=== PATIENT | female | born 1965 | race Caucasian/White ===

== ENCOUNTER 2023-09-16 18:59 | Inpatient (IN) | payer MEDICAID, OTHER ==
[~2023-09-16] VITALS: Ht 170.2 cm; Wt 83.2 kg
[2023-09-16 19:27] LABS: HEMATOCRIT 43.5 % (36.0-47.0); HEMOGLOBIN 14.9 g/dl (12.0-15.5); MEAN CORPUSCULAR HEMOGLOBIN 30.8 pg (27.0-33.0); MEAN CORPUSCULAR HGB CONC 34.3 g/dl (32.0-36.5); MEAN CORPUSCULAR VOLUME 89.9 fl (80.0-96.0); PLATELET COUNT, AUTOMATED 149 10^3/uL (150-450); RED BLOOD COUNT 4.84 10^6/uL (4.00-5.40); WHITE BLOOD COUNT 4.7 10^3/uL (4.0-10.0)
[2023-09-16] MEDS: NS 1,000 ML IV ONE (19:35)
[2023-09-16] MEDS: MIDAZOLAM 100MG/100ML-0.9%NACL 100 MG in IV 1 EA IV SCH (19:35)
[2023-09-16] MEDS: ROCURONIUM BROMIDE 50MG/5ML VIAL IV ONE (19:36)
[2023-09-16] MEDS: ETOMIDATE INJ 20MG/10ML VIAL IV ONE (19:36)
[2023-09-16 19:47] LABS: VENOUS BASE EXCESS -7.7 (-2.0-2.0); VENOUS HCO3 19.3 MMOL/L (23.0-27.0); VENOUS O2 SATURATION 77.1 % (60.0-80.0); VENOUS PARTIAL PRESSURE CO2 44.6 mmHg (38.0-50.0); VENOUS PH 7.254 UNITS (7.330-7.430); VENOUS STANDARD HCO3 17.9 MMOL/L; VENOUS TOTAL CO2 20.7 MMOL/L (24.0-28.0)
[2023-09-16 19:47] LABS: ABG BASE EXCESS -8.1 (-2.0-2.0); ABG HCO3 16.8 MMOL/L (22.0-26.0); ABG O2 SATURATION 99.1 % (95.0-99.0); ABG PARTIAL PRESSURE CO2 33.1 mmHg (35.0-45.0); ABG PARTIAL PRESSURE O2 183.9 mmHg (75.0-100.0); ABG STANDARD HCO3 18.1 MMOL/L. (22.0-26.0); ABG TOTAL CO2 17.8 MMOL/L (22.0-29.0); ABG pH (ARTERIAL) 7.324 UNITS (7.350-7.450)
[2023-09-16] MEDS: PIPERACILLIN/TAZOBACTAM SOD 4.5 GM in D5W MINI-BAG PLUS 50 ML IV ONE (19:50)
[2023-09-16 19:55] LABS: ALBUMIN 2.8 G/DL (3.2-5.2); ALKALINE PHOSPHATASE 49 U/L (46-116); ALT/SGPT 16 U/L (7.0-40); AST/SGOT 20 U/L (<34); BILIRUBIN,DIRECT 0.5 MG/DL (<0.4); CK-MB VALUE MASS < 1.0 NG/ML (<3.6); TOTAL PROTEIN 5.2 G/DL (5.7-8.2)
[2023-09-16 19:58] LABS: THYROID STIMULATING HORMONE 0.551 uIU/ML (0.55-4.78)
[2023-09-16] MEDS ORDERED: ISOVUE-370 76% 100ML VIAL As Ordered ONE (20:03)
[2023-09-16] MEDS: IPRATROPIUM 0.5MG/ALBUTEROL 2.5MG INH SOL UD 3ML (DUONEB) NEB SCH (20:05)
[2023-09-16 20:07] LABS: CPK CREATINE PHOSPHOKINASE 142 U/L (34-145); PROCALCITONIN >50.00 ng/ml
[2023-09-16 20:11] LABS: ATYPICAL LYMPH 4 % (0-5); LYMPHOCYTES 14 % (16-44); METAMYELOCYTES 2 % (0-0); MONOCYTES 7 % (0-5); MYELOCYTES 2 % (0-0); NEUTROPHILS 61 % (28-66)
[2023-09-16 20:12] LABS: PLATELET ESTIMATE NORMAL (NORMAL)
[2023-09-16 20:13] LABS: TOXIC VACUOLATION 1+
[2023-09-16] MEDS: NS 1,590 ML in IV 1 EA IV ONE (20:52)
[2023-09-16] MEDS: MIDAZOLAM INJ 2MG/2ML VIAL IV PRN (22:06)
[2023-09-16] MEDS ORDERED: propofoL 1,000 MG in IV 1 EA IV SCH (22:10)
[2023-09-16] MEDS: ROCURONIUM BROMIDE 50MG/5ML VIAL IV PRN (22:15)
[2023-09-16] MEDS ORDERED: HOME MED LIST COMPLETE! XX SCH (22:50)
[2023-09-17] VITALS (135 sets, daily range): BP systolic 58–179; BP diastolic 24–92; TEMP 92.1–105.6; O2SAT 48–100
[2023-09-17] MEDS: MIDAZOLAM 100MG/100ML-0.9%NACL 100 MG in IV 1 EA IV SCH (00:25)
[2023-09-17] MEDS: propofoL 1,000 MG in IV 1 EA IV SCH (00:25)
[2023-09-17] MEDS ORDERED: IPRATROPIUM 0.5MG/ALBUTEROL 2.5MG INH SOL UD 3ML (DUONEB) NEB PRN (00:25)
[2023-09-17 01:12] LABS: INR 1.69; PROTHROMBIN TIME 19.3 SECONDS (12.5-14.5)
[2023-09-17] MEDS: ACETAMINOPHEN *IV* 1,000 MG in IV 1 EA IV ONE (01:58)
[2023-09-17] MEDS: MIDAZOLAM INJ 2MG/2ML VIAL IV PRN (01:58)
[2023-09-17] MEDS ORDERED: FENTANYL DRIP LOCK BOX KEY 1 EACH XX PRN (03:10)
[2023-09-17 03:13] LABS: ABG HCO3 16.2 MMOL/L (22.0-26.0); ABG O2 SATURATION 89.7 % (95.0-99.0); ABG STANDARD HCO3 15.5 MMOL/L. (22.0-26.0)
[2023-09-17 03:16] LABS: ABG BASE EXCESS -11.4 (-2.0-2.0); ABG PARTIAL PRESSURE CO2 42.7 mmHg (35.0-45.0); ABG PARTIAL PRESSURE O2 59.5 mmHg (75.0-100.0); ABG TOTAL CO2 17.6 MMOL/L (22.0-29.0); ABG pH (ARTERIAL) 7.198 UNITS (7.350-7.450)
[2023-09-17] MEDS: LR 1,000 ML IV SCH (03:23)
[2023-09-17] MEDS: PIPERACILLIN/TAZOBACTAM SOD 4.5 GM in D5W MINI-BAG PLUS 50 ML IV SCH (03:38)
[2023-09-17] MEDS: fentaNYL CITRATE/NaCl 1,000 MCG in IV 1 EA IV SCH (03:46)
[2023-09-17] MEDS: SODIUM BICARBONATE 150 MEQ in D5W 1,000 ML IV SCH ×2 (03:50→21:20)
[2023-09-17] MEDS ORDERED: ACETAMINOPHEN *IV* 1,000 MG in IV 1 EA IV ONE (04:00)
[2023-09-17] MEDS ORDERED: SODIUM BICARBONATE 8.4% INJ 50ML SYRINGE ONE (04:22)
[2023-09-17] MEDS ORDERED: MAGNESIUM SULFATE 1GM/2ML (8MEQ/2ML) VIAL ONE (04:22)
[2023-09-17] MEDS ORDERED: CALCIUM CHLORIDE 10% 1 GM/10 ML SYR ONE (04:22)
[2023-09-17] MEDS ORDERED: EPINEPHrine 1MG/10ML SYRINGE 1.5IN ONE (04:22)
[2023-09-17 05:15] LABS: HEMATOCRIT 37.8 % (36.0-47.0); MEAN CORPUSCULAR HEMOGLOBIN 31.2 pg (27.0-33.0); MEAN CORPUSCULAR HGB CONC 33.6 g/dl (32.0-36.5); MEAN CORPUSCULAR VOLUME 92.9 fl (80.0-96.0); RED BLOOD COUNT 4.07 10^6/uL (4.00-5.40); WHITE BLOOD COUNT 1.3 10^3/uL (4.0-10.0)
[2023-09-17] MEDS ORDERED: VASOPRESSIN INJ 20UNITS/ML 1ML VIAL As Ordered ONE (05:15)
[2023-09-17 05:16] LABS: ABG BASE EXCESS -10.2 (-2.0-2.0); ABG HCO3 19.8 MMOL/L (22.0-26.0); ABG O2 SATURATION 89.1 % (95.0-99.0); ABG PARTIAL PRESSURE O2 64.4 mmHg (75.0-100.0); ABG STANDARD HCO3 16.3 MMOL/L. (22.0-26.0); ABG TOTAL CO2 21.7 MMOL/L (22.0-29.0)
[2023-09-17 05:19] LABS: ABG PARTIAL PRESSURE CO2 62.2 mmHg (35.0-45.0)
[2023-09-17] MEDS: VASOPRESSIN INJ 20 UNITS in NS 499 ML IV SCH (05:20)
[2023-09-17] MEDS ORDERED: SODIUM BICARBONATE 8.4% INJ 50ML SYRINGE As Ordered ONE (05:31)
[2023-09-17] MEDS ORDERED: PHENYLEPHRINE 10MG/ML 1ML VIAL As Ordered ONE (05:31)
[2023-09-17] MEDS: SODIUM BICARBONATE 8.4% INJ 50ML SYRINGE IV STA ×4 (05:31→21:20)
[2023-09-17] MEDS: PHENYLEPHRINE HCL INJ 50 MG in D5W 495 ML IV SCH (05:37)
[2023-09-17] MEDS ORDERED: HYDROCORTISONE 100MG/2ML VIAL As Ordered ONE (05:40)
[2023-09-17] MEDS: HYDROCORTISONE 100MG/2ML VIAL IV SCH (05:42)
[2023-09-17 05:43] LABS: HEMOGLOBIN 12.7 g/dl (12.0-15.5); PLATELET COUNT, AUTOMATED 85 10^3/uL (150-450)
[2023-09-17] MEDS: NOREPINEPHRINE 4MG IN D5 250ML 4 MG in IV 1 EA IV SCH (05:44)
[2023-09-17] MEDS: LR 1,000 ML IV ONE (05:44)
[2023-09-17 05:46] LABS: INR 2.33; PARTIAL THROMBOPLASTIN TIME 69.3 SECONDS (24.8-34.2); PROTHROMBIN TIME 24.7 SECONDS (12.5-14.5)
[2023-09-17] MEDS ORDERED: EPINEPHrine INJ 1 MG/ML 1ML AMP As Ordered ONE (05:49)
[2023-09-17] MEDS: EPINEPHrine HCL INJ 4 MG in D5W 996 ML IV SCH (06:03)
[2023-09-17 06:07] LABS: ALBUMIN 1.4 G/DL (3.2-5.2); BILIRUBIN,TOTAL 0.5 MG/DL (0.3-1.2); CALCIUM LEVEL 7.3 MG/DL (8.5-10.1); CREATININE FOR GFR 1.66 MG/DL (0.55-1.30); FREE THYROXINE INDEX 3.1 % (1.3-4.8); MAGNESIUM LEVEL 2.9 MG/DL (1.8-2.4); POTASSIUM SERUM 3.4 MMOL/L (3.5-5.1); THYROID STIMULATING HORMONE 1.806 uIU/ML (0.55-4.78); THYROXINE (T4) 4.7 UG/DL (4.5-10.9); TOTAL PROTEIN 3.1 G/DL (5.7-8.2)
[2023-09-17 06:56] LABS: ABG BASE EXCESS -4.1 (-2.0-2.0); ABG HCO3 22.5 MMOL/L (22.0-26.0); ABG O2 SATURATION 86.1 % (95.0-99.0); ABG PARTIAL PRESSURE CO2 46.8 mmHg (35.0-45.0); ABG STANDARD HCO3 20.8 MMOL/L. (22.0-26.0); ABG TOTAL CO2 23.9 MMOL/L (22.0-29.0); ABG pH (ARTERIAL) 7.299 UNITS (7.350-7.450)
[2023-09-17 06:58] LABS: ABG PARTIAL PRESSURE O2 49.3 mmHg (75.0-100.0)
[2023-09-17] MEDS: VANCOMYCIN HCL 750 MG, VIAL MATE ADAPTER 1 EACH in D5W 250 ML IV ONE ×2 (07:15→08:25)
[2023-09-17] MEDS: CISATRACURIUM 10MG/ML 20 ML VIAL IV ONE (07:23)
[2023-09-17] MEDS: AZITHROMYCIN INJ 500 MG, VIAL MATE ADAPTER 1 EACH in NS 250 ML IV SCH (08:00)
[2023-09-17 08:02] LABS: ABG PARTIAL PRESSURE CO2 51.9 mmHg (35.0-45.0)
[2023-09-17 08:05] LABS: ABG BASE EXCESS -7.1 (-2.0-2.0); ABG HCO3 20.9 MMOL/L (22.0-26.0); ABG O2 SATURATION 99.3 % (95.0-99.0); ABG STANDARD HCO3 18.8 MMOL/L. (22.0-26.0); ABG TOTAL CO2 22.5 MMOL/L (22.0-29.0)
[2023-09-17 08:06] LABS: ABG pH (ARTERIAL) 7.222 UNITS (7.350-7.450)
[2023-09-17 08:40] LABS: ABG BASE EXCESS -9.9 (-2.0-2.0); ABG HCO3 19.7 MMOL/L (22.0-26.0); ABG O2 SATURATION 92.5 % (95.0-99.0); ABG PARTIAL PRESSURE CO2 58.8 mmHg (35.0-45.0); ABG PARTIAL PRESSURE O2 73.4 mmHg (75.0-100.0); ABG STANDARD HCO3 16.6 MMOL/L. (22.0-26.0); ABG TOTAL CO2 21.5 MMOL/L (22.0-29.0)
[2023-09-17 08:42] LABS: ABG pH (ARTERIAL) 7.143 UNITS (7.350-7.450)
[2023-09-17] MEDS ORDERED: ENOXAPARIN 40MG/0.4ML SYRINGE (J1650 PER 10MG) SC SCH (09:00)
[2023-09-17] MEDS: KCL 10MEQ/100ML SWI (KRUN) 10 MEQ in IV 1 EA IV ONE (09:01)
[2023-09-17] MEDS: CISATRACURIUM 200 MG in NS 480 ML IV SCH (09:08)
[2023-09-17 09:26] LABS: HEMATOCRIT 40.7 % (36.0-47.0); HEMOGLOBIN 13.4 g/dl (12.0-15.5); MEAN CORPUSCULAR HEMOGLOBIN 29.8 pg (27.0-33.0); MEAN CORPUSCULAR HGB CONC 32.9 g/dl (32.0-36.5); MEAN CORPUSCULAR VOLUME 90.6 fl (80.0-96.0); RED BLOOD COUNT 4.49 10^6/uL (4.00-5.40); WHITE BLOOD COUNT 1.6 10^3/uL (4.0-10.0)
[2023-09-17 09:27] LABS: PLATELET COUNT, AUTOMATED 89 10^3/uL (150-450)
[2023-09-17 09:27] LABS: INR 2.41; PARTIAL THROMBOPLASTIN TIME 48.9 SECONDS (24.8-34.2); PROTHROMBIN TIME 25.4 SECONDS (12.5-14.5)
[2023-09-17] MEDS: HEPARIN 1,000UNITS/ML 10ML VIAL (FOR RADIOLOGY & DIALYSIS ONLY) IV STA (09:37)
[2023-09-17] MEDS: PANTOPRAZOLE 40MG VIAL IV SCH (09:37)
[2023-09-17 09:39] LABS: ABG BASE EXCESS -9.6 (-2.0-2.0); ABG HCO3 19.3 MMOL/L (22.0-26.0); ABG O2 SATURATION 91.7 % (95.0-99.0); ABG STANDARD HCO3 16.8 MMOL/L. (22.0-26.0)
[2023-09-17 09:41] LABS: URIC ACID 5.7 MG/DL (3.1-7.8)
[2023-09-17 09:42] LABS: ABG pH (ARTERIAL) 7.164 UNITS (7.350-7.450)
[2023-09-17 09:51] LABS: ALBUMIN 1.5 G/DL (3.2-5.2); BILIRUBIN,TOTAL 0.9 MG/DL (0.3-1.2); CALCIUM LEVEL 6.5 MG/DL (8.5-10.1); CREATININE FOR GFR 1.46 MG/DL (0.55-1.30); GLOMERULAR FILTRATION RATE 39.5 (>51); PHOSPHORUS LEVEL 4.6 MG/DL (2.5-4.9); POTASSIUM SERUM 2.8 MMOL/L (3.5-5.1); TOTAL PROTEIN 3.2 G/DL (5.7-8.2)
[2023-09-17 09:52] LABS: ATYPICAL LYMPH 5 % (0-5); EOSINOPHILS 1 % (0-3); LYMPHOCYTES 51 % (16-44); METAMYELOCYTES 11 % (0-0); MONOCYTES 4 % (0-5); MYELOCYTES 9 % (0-0); NEUTROPHILS 11 % (28-66)
[2023-09-17 09:54] LABS: PLATELET CLUMPS SMALL AMT; PLATELET ESTIMATE DECREASED (NORMAL); SMUDGE CELLS 1+
[2023-09-17 09:55] LABS: CRENATED RBC 1+; POLYCHROMASIA 1+
[2023-09-17] MEDS ORDERED: GLUCAGON INJ 1MG VIAL SC PRN (09:55)
[2023-09-17] MEDS ORDERED: GLUCOSE 4GM CHEW TABLET PO PRN (09:55)
[2023-09-17 09:56] LABS: POIKILOCYTOSIS 1+
[2023-09-17 09:57] LABS: TOXIC VACUOLATION 1+
[2023-09-17 10:00] LABS: ALBUMIN 1.5 G/DL (3.2-5.2); BILIRUBIN,TOTAL 0.9 MG/DL (0.3-1.2); CALCIUM LEVEL 6.6 MG/DL (8.5-10.1); CK-MB VALUE MASS 6.5 NG/ML (<3.6); CREATININE FOR GFR 1.45 MG/DL (0.55-1.30); GLOMERULAR FILTRATION RATE 39.8 (>51); MB/CK RELATIVE INDEX 1.71 (< OR =4); PHOSPHORUS LEVEL 4.7 MG/DL (2.5-4.9); POTASSIUM SERUM 2.8 MMOL/L (3.5-5.1); TOTAL PROTEIN 3.2 G/DL (5.7-8.2)
[2023-09-17 10:21] LABS: URINE PREG TEST NEGATIVE (NEGATIVE)
[2023-09-17 10:35] LABS: ABG BASE EXCESS -9.5 (-2.0-2.0); ABG HCO3 19.9 MMOL/L (22.0-26.0); ABG PARTIAL PRESSURE CO2 58.6 mmHg (35.0-45.0); ABG PARTIAL PRESSURE O2 64.7 mmHg (75.0-100.0); ABG STANDARD HCO3 16.8 MMOL/L. (22.0-26.0); ABG TOTAL CO2 21.6 MMOL/L (22.0-29.0)
[2023-09-17 10:37] LABS: ABG pH (ARTERIAL) 7.149 UNITS (7.350-7.450)
[2023-09-17] MEDS: KCL 20MEQ IN 100ML SWI (KRUN) 20 MEQ in IV 1 EA IV SCH ×2 (10:49→18:39)
[2023-09-17] MEDS: MEROPENEM INJ 2 GM in NS 100 ML IV SCH (11:09)
[2023-09-17] MEDS ORDERED: HEPARIN 1,000UNITS/ML 10ML VIAL (FOR RADIOLOGY & DIALYSIS ONLY) IV PRN (11:20)
[2023-09-17] MEDS ORDERED: SODIUM CHLORIDE 0.9% INJ 10 ML SYR IV PRN (11:20)
[2023-09-17 11:43] LABS: ABG O2 SATURATION 91.9 % (95.0-99.0); ABG PARTIAL PRESSURE O2 69.9 mmHg (75.0-100.0); ABG STANDARD HCO3 15.8 MMOL/L. (22.0-26.0); ABG TOTAL CO2 20.8 MMOL/L (22.0-29.0)
[2023-09-17 11:49] LABS: ABG PARTIAL PRESSURE CO2 60.4 mmHg (35.0-45.0); ABG pH (ARTERIAL) 7.115 UNITS (7.350-7.450)
[2023-09-17 12:05] LABS: HEMATOCRIT 38.3 % (36.0-47.0); HEMOGLOBIN 12.6 g/dl (12.0-15.5); MEAN CORPUSCULAR HEMOGLOBIN 30.1 pg (27.0-33.0); MEAN CORPUSCULAR HGB CONC 32.9 g/dl (32.0-36.5); MEAN CORPUSCULAR VOLUME 91.4 fl (80.0-96.0); RED BLOOD COUNT 4.19 10^6/uL (4.00-5.40); WHITE BLOOD COUNT 1.9 10^3/uL (4.0-10.0)
[2023-09-17 12:06] LABS: PLATELET COUNT, AUTOMATED 65 10^3/uL (150-450)
[2023-09-17 12:17] LABS: INR 2.81; PARTIAL THROMBOPLASTIN TIME 53.5 SECONDS (24.8-34.2); PROTHROMBIN TIME 28.5 SECONDS (12.5-14.5)
[2023-09-17] MEDS: INSULIN LISPRO (NovoLOG) PER UNIT SC SCH (12:27)
[2023-09-17 12:30] LABS: ALBUMIN 1.3 G/DL (3.2-5.2); BILIRUBIN,TOTAL 0.7 MG/DL (0.3-1.2); CREATININE FOR GFR 1.44 MG/DL (0.55-1.30); GLOMERULAR FILTRATION RATE 40.1 (>51); MAGNESIUM LEVEL 1.9 MG/DL (1.8-2.4); PHOSPHORUS LEVEL 5.4 MG/DL (2.5-4.9); POTASSIUM SERUM 4.1 MMOL/L (3.5-5.1); TOTAL PROTEIN 2.9 G/DL (5.7-8.2)
[2023-09-17 12:43] LABS: ABG HCO3 18.9 MMOL/L (22.0-26.0); ABG O2 SATURATION 93.9 % (95.0-99.0); ABG PARTIAL PRESSURE CO2 56.4 mmHg (35.0-45.0); ABG PARTIAL PRESSURE O2 71.7 mmHg (75.0-100.0); ABG STANDARD HCO3 15.8 MMOL/L. (22.0-26.0); ABG TOTAL CO2 20.7 MMOL/L (22.0-29.0)
[2023-09-17 12:45] LABS: ABG pH (ARTERIAL) 7.133 UNITS (7.350-7.450)
[2023-09-17] MEDS ORDERED: ACETAMINOPHEN *IV* 1,000 MG in IV 1 EA IV PRN (13:30)
[2023-09-17] MEDS: MAG SULF 1GM/100ML (MAG RUN) 1 GM in IV 1 EA IV ONE (13:58)
[2023-09-17] MEDS: CALCIUM GLUCONATE 1,000 MG, VIAL MATE ADAPTER 1 EACH in NS 100 ML IV SCH (14:02)
[2023-09-17 14:38] LABS: ABG BASE EXCESS -9.8 (-2.0-2.0); ABG HCO3 19.5 MMOL/L (22.0-26.0); ABG O2 SATURATION 93.8 % (95.0-99.0); ABG PARTIAL PRESSURE CO2 50.4 mmHg (35.0-45.0); ABG STANDARD HCO3 16.6 MMOL/L. (22.0-26.0); ABG TOTAL CO2 21.3 MMOL/L (22.0-29.0)
[2023-09-17 14:40] LABS: ABG pH (ARTERIAL) 7.186 UNITS (7.350-7.450)
[2023-09-17 16:13] LABS: ABG BASE EXCESS -12.4 (-2.0-2.0); ABG HCO3 17.2 MMOL/L (22.0-26.0); ABG O2 SATURATION 92.7 % (95.0-99.0); ABG PARTIAL PRESSURE CO2 46.2 mmHg (35.0-45.0); ABG PARTIAL PRESSURE O2 55.2 mmHg (75.0-100.0); ABG STANDARD HCO3 14.8 MMOL/L. (22.0-26.0); ABG TOTAL CO2 18.9 MMOL/L (22.0-29.0)
[2023-09-17 16:20] LABS: ABG pH (ARTERIAL) 7.165 UNITS (7.350-7.450)
[2023-09-17 16:32] LABS: INR 3.04; PARTIAL THROMBOPLASTIN TIME 57.3 SECONDS (24.8-34.2); PROTHROMBIN TIME 30.3 SECONDS (12.5-14.5)
[2023-09-17 16:42] LABS: HEMATOCRIT 37.4 % (36.0-47.0); HEMOGLOBIN 12.6 g/dl (12.0-15.5); MEAN CORPUSCULAR HEMOGLOBIN 30.6 pg (27.0-33.0); MEAN CORPUSCULAR HGB CONC 33.7 g/dl (32.0-36.5); MEAN CORPUSCULAR VOLUME 90.8 fl (80.0-96.0); RED BLOOD COUNT 4.12 10^6/uL (4.00-5.40); WHITE BLOOD COUNT 1.9 10^3/uL (4.0-10.0)
[2023-09-17 16:45] LABS: ALBUMIN 1.2 G/DL (3.2-5.2); ALKALINE PHOSPHATASE 33 U/L (46-116); ALT/SGPT 22 U/L (7.0-40); AST/SGOT 52 U/L (<34); BILIRUBIN,TOTAL 0.8 MG/DL (0.3-1.2); BLOOD UREA NITROGEN 25 MG/DL (9-23); CALCIUM LEVEL 6.4 MG/DL (8.5-10.1); CARBON DIOXIDE LEVEL 20 MMOL/L (20-31); CHLORIDE LEVEL 103 MMOL/L (98-107); GLOMERULAR FILTRATION RATE > 60.0 (>51); GLUCOSE, FASTING 240 MG/DL (60-100); MAGNESIUM LEVEL 2.1 MG/DL (1.8-2.4); PHOSPHORUS LEVEL 4.5 MG/DL (2.5-4.9); POTASSIUM SERUM 3.2 MMOL/L (3.5-5.1); SODIUM LEVEL 132 MMOL/L (136-145); TOTAL PROTEIN 2.8 G/DL (5.7-8.2)
[2023-09-17 16:47] LABS: PLATELET COUNT, AUTOMATED 41 10^3/uL (150-450)
[2023-09-17 17:25] LABS: ABG HCO3 17.1 MMOL/L (22.0-26.0); ABG O2 SATURATION 88.8 % (95.0-99.0); ABG PARTIAL PRESSURE CO2 59.1 mmHg (35.0-45.0); ABG TOTAL CO2 19.2 MMOL/L (22.0-29.0)
[2023-09-17 17:26] LABS: ABG pH (ARTERIAL) 7.052 UNITS (7.350-7.450)
[2023-09-17] MEDS: KCL 20MEQ IN 100ML SWI (KRUN) 20 MEQ in IV 1 EA IV ONE (17:31)
[2023-09-17] MEDS: VANCOMYCIN HCL 750 MG, VIAL MATE ADAPTER 1 EACH in D5W 250 ML IV SCH (17:31)
[2023-09-17] MEDS ORDERED: VANCOMYCIN HCL 1,000 MG, VIAL MATE ADAPTER 1 EACH in D5W 250 ML IV SCH (18:00)
[2023-09-17] MEDS: CALCIUM GLUCONATE 1,000 MG in NS 100 ML IV SCH (18:39)
[2023-09-17] MEDS: MEROPENEM INJ 1 GM in IV 1 EA IV SCH (18:47)
[2023-09-17 19:25] LABS: ABG BASE EXCESS -15.5 (-2.0-2.0); ABG HCO3 15.4 MMOL/L (22.0-26.0); ABG O2 SATURATION 96.6 % (95.0-99.0); ABG PARTIAL PRESSURE CO2 57.5 mmHg (35.0-45.0); ABG PARTIAL PRESSURE O2 98.5 mmHg (75.0-100.0); ABG STANDARD HCO3 12.9 MMOL/L. (22.0-26.0); ABG TOTAL CO2 17.1 MMOL/L (22.0-29.0)
[2023-09-17 19:26] LABS: ABG pH (ARTERIAL) 7.045 UNITS (7.350-7.450)
[2023-09-17 21:08] LABS: ABG O2 SATURATION 93.6 % (95.0-99.0); ABG PARTIAL PRESSURE CO2 56.1 mmHg (35.0-45.0)
[2023-09-17 21:09] LABS: ABG BASE EXCESS -18.6 (-2.0-2.0); ABG HCO3 13.2 MMOL/L (22.0-26.0); ABG PARTIAL PRESSURE O2 76.8 mmHg (75.0-100.0); ABG STANDARD HCO3 10.9 MMOL/L. (22.0-26.0); ABG TOTAL CO2 14.9 MMOL/L (22.0-29.0)
[2023-09-17 21:10] LABS: ABG pH (ARTERIAL) 6.988 UNITS (7.350-7.450)
[2023-09-17 21:40] LABS: IONIZED CALCIUM 3.9 MG/DL (4.5-5.3)
[2023-09-17 21:46] LABS: HEMATOCRIT 39.5 % (36.0-47.0); MEAN CORPUSCULAR HEMOGLOBIN 30.1 pg (27.0-33.0); MEAN CORPUSCULAR HGB CONC 32.9 g/dl (32.0-36.5); MEAN CORPUSCULAR VOLUME 91.4 fl (80.0-96.0); RED BLOOD COUNT 4.32 10^6/uL (4.00-5.40)
[2023-09-17 21:48] LABS: PLATELET COUNT, AUTOMATED 31 10^3/uL (150-450)
[2023-09-17 22:00] LABS: INR 2.89; PARTIAL THROMBOPLASTIN TIME 53.1 SECONDS (24.8-34.2); PROTHROMBIN TIME 29.2 SECONDS (12.5-14.5)
[2023-09-17 22:15] LABS: ALBUMIN 1.4 G/DL (3.2-5.2); CALCIUM LEVEL 6.1 MG/DL (8.5-10.1); CREATININE FOR GFR 1.1 MG/DL (0.55-1.30); GLOMERULAR FILTRATION RATE 54.7 (>51); PHOSPHORUS LEVEL 5.1 MG/DL (2.5-4.9); POTASSIUM SERUM 4.2 MMOL/L (3.5-5.1); TOTAL PROTEIN 3.1 G/DL (5.7-8.2)
[2023-09-18] VITALS (25 sets, daily range): BP systolic 62–126; BP diastolic 37–61; TEMP 94.5–96.1
[2023-09-18 01:05] LABS: ABG BASE EXCESS -13.7 (-2.0-2.0); ABG HCO3 16.5 MMOL/L (22.0-26.0); ABG O2 SATURATION 94.2 % (95.0-99.0); ABG PARTIAL PRESSURE CO2 56.9 mmHg (35.0-45.0); ABG PARTIAL PRESSURE O2 72.3 mmHg (75.0-100.0); ABG STANDARD HCO3 13.9 MMOL/L. (22.0-26.0); ABG TOTAL CO2 18.3 MMOL/L (22.0-29.0)
[2023-09-18] MEDS: DEXTROSE 50% 50ML SYRINGE IV PRN (01:05)
[2023-09-18 01:06] LABS: ABG pH (ARTERIAL) 7.081 UNITS (7.350-7.450)
[2023-09-18 02:23] LABS: HEMATOCRIT 37.6 % (36.0-47.0); HEMOGLOBIN 12.5 g/dl (12.0-15.5); MEAN CORPUSCULAR HEMOGLOBIN 30.1 pg (27.0-33.0); MEAN CORPUSCULAR HGB CONC 33.2 g/dl (32.0-36.5); MEAN CORPUSCULAR VOLUME 90.6 fl (80.0-96.0); RED BLOOD COUNT 4.15 10^6/uL (4.00-5.40); WHITE BLOOD COUNT 2.5 10^3/uL (4.0-10.0)
[2023-09-18 02:25] LABS: PLATELET COUNT, AUTOMATED 18 10^3/uL (150-450)
[2023-09-18 02:34] LABS: INR 3.07; PARTIAL THROMBOPLASTIN TIME 55.9 SECONDS (24.8-34.2); PROTHROMBIN TIME 30.6 SECONDS (12.5-14.5)
[2023-09-18] MEDS: CALCIUM GLUCONATE 1,000 MG, VIAL MATE ADAPTER 1 EACH in NS 100 ML IV SCH (02:58)
[2023-09-18 02:59] LABS: ALBUMIN 1.2 G/DL (3.2-5.2); BILIRUBIN,TOTAL 0.9 MG/DL (0.3-1.2); CALCIUM LEVEL 5.9 MG/DL (8.5-10.1); CREATININE FOR GFR 1.07 MG/DL (0.55-1.30); GLOMERULAR FILTRATION RATE 56.5 (>51); MAGNESIUM LEVEL 1.6 MG/DL (1.8-2.4); PHOSPHORUS LEVEL 3.4 MG/DL (2.5-4.9); POTASSIUM SERUM 3.6 MMOL/L (3.5-5.1); TOTAL PROTEIN 2.9 G/DL (5.7-8.2)
[2023-09-18] MEDS: MAG SULF 1GM/100ML (MAG RUN) 1 GM in IV 1 EA IV SCH (03:48)
[2023-09-18 05:04] LABS: ABG BASE EXCESS -13.6 (-2.0-2.0); ABG HCO3 16.1 MMOL/L (22.0-26.0); ABG O2 SATURATION 97.1 % (95.0-99.0); ABG PARTIAL PRESSURE CO2 54.4 mmHg (35.0-45.0); ABG PARTIAL PRESSURE O2 93.5 mmHg (75.0-100.0); ABG STANDARD HCO3 13.9 MMOL/L. (22.0-26.0); ABG TOTAL CO2 17.8 MMOL/L (22.0-29.0)
[2023-09-18 05:05] LABS: ABG pH (ARTERIAL) 7.089 UNITS (7.350-7.450)
[2023-09-18] MEDS: KCL 20MEQ IN 100ML SWI (KRUN) 20 MEQ in IV 1 EA IV SCH (05:22)
[2023-09-18] MEDS ORDERED: VANCOMYCIN HCL 750 MG, VIAL MATE ADAPTER 1 EACH in D5W 250 ML IV SCH (14:00)
[2023-09-20 17:11] LABS: BODY FLUID CULTURE Not indicated. (.); LEGIONELLA ANTIGEN URINE Negative (Negative); ORGANISM ID Not indicated. (.); SPECIMEN SOURCE Urine (.); URINE STREP PNEUMONIAE ANTIGEN Negative (Negative)
== END 2023-09-18 06:14 | disposition expired | DRG 720 ==
LOC: EDBD 18:59 → M ED 18:59 → M ED INP 09-17 00:22 → ENRESERV 09-17 01:02 → M ICU 09-17 01:30
PROVIDERS: ADMIT Internal Medicine; ATTEND Internal Medicine Pulmonary Disease
PROC: 5A1935Z Respiratory Ventilation, Less than 24 Consecutive Hours (ICD-10-PCS; principal; 2023-09-17)
PROC: 02HV33Z Insertion of Infusion Device into Superior Vena Cava, Percutaneous Approach (ICD-10-PCS; 2023-09-17)
PROC: 04HK33Z Insertion of Infusion Device into Right Femoral Artery, Percutaneous Approach (ICD-10-PCS; 2023-09-17)
PROC: 0JH63XZ Insertion of Tunneled Vascular Access Device into Chest Subcutaneous Tissue and Fascia, Percutaneous Approach (ICD-10-PCS; 2023-09-17)
DX: A41.9 Sepsis, unspecified organism (principal); D65 Disseminated intravascular coagulation [defibrination syndrome]; R40.20 Unspecified coma; R65.21 Severe sepsis with septic shock; J18.9 Pneumonia, unspecified organism; J90 Pleural effusion, not elsewhere classified; J96.01 Acute respiratory failure with hypoxia; J96.92 Respiratory failure, unspecified with hypercapnia; E87.4 Mixed disorder of acid-base balance; N17.9 Acute kidney failure, unspecified; E87.20 Acidosis, unspecified; E87.1 Hypo-osmolality and hyponatremia; E87.6 Hypokalemia; F17.210 Nicotine dependence, cigarettes, uncomplicated; J98.11 Atelectasis; R59.0 Localized enlarged lymph nodes; Z51.5 Encounter for palliative care